=== PATIENT | male | born 1965 | race Caucasian/White ===

== ENCOUNTER 2019-03-18 10:42 | Emergency (ER) | payer BC ==
[~2019-03-18] VITALS: Wt 67.0 kg
[2019-03-18] MEDS ORDERED: ASPIRIN 325 MG TAB PO STA (11:57)
--- NOTE | 2019-03-18 12:31 | ERD ---
ER Documentation Chief Complaint Chief Complaint CHEST PAIN AND CHEST PRESSURE FOR THE PAST FEW DAYS. NO SOB NOTED HPI This is a 54-year-old male with a past medical history of hypertension. The patient indicates for the past 3 days he has been having intermittent chest pain. He states it is a squeezing-like sensation. He also indicates that he has had intermittent stabbing pain in the chest. He has no shortness of breath at rest or exertion. The pain does not radiate to his neck arm back or jaw. He does not smoke tobacco and has no family history of coronary artery disease. He denies any hemoptysis hematemesis or melanotic stools. ROS All systems reviewed and are negative except as per history of present illness. Medications Home Meds Active Scripts Ibuprofen* (Motrin*) 800 Mg Tab, 800 MG PO Q6H PRN for PAIN AND OR ELEVATED TEMP, #30 TAB Prov:ЕЛЕНА MARTINS MD 03/18/19 Reported Medications Amlodipine Besylate* (Amlodipine Besylate*) 10 Mg Tablet, 10 MG PO DAILY, #30 TAB 03/18/19 Benazepril Hcl* (Benazepril Hcl*) 40 Mg Tablet, 40 MG PO DAILY, #30 TAB 03/18/19 Hydrochlorothiazide* (Hydrochlorothiazide*) 25 Mg Tab, 25 MG PO DAILY, #30 TAB 03/18/19 Allergies Allergies: Coded Allergies: No Known Allergy (Unverified , 03/18/19) PMhx/Soc History of Surgery: Yes (Cholecystectomy) Anesthesia Reaction: No Hx Neurological Disorder: No Hx Respiratory Disorders: No Hx Cardiac Disorders: No Hx Psychiatric Problems: No Hx Miscellaneous Medical Probl: Yes (HTN) Hx Alcohol Use: No Hx Substance Use: No Hx Tobacco Use: No Smoking Status: Never smoker Physical Exam Vitals Vital Signs Date Temp Pulse Resp B/P (MAP) Pulse Ox O2 O2 Flow FiO2 Time Delivery Rate 03/18/19 59 18 129/94 98 Room Air 13:08 (106) 03/18/19 98.6 64 18 157/98 98 10:46 (117) Physical Exam Constitutional:Well-developed. Well-nourished. HEENT:Normocephalic. Atraumatic.Pupils were equal round reactive to light. Moist mucous membranes.No tonsillar exudates. Neck: No nuchal rigidity. No lymphadenopathy. No posterior cervical spine tenderness or step-offs. Respiratory: Not using accessory muscles of respiration.Lungs were clear to auscultation bilaterally. No rhonchi. No rales. No wheezing. Cardiovascular: Regular rate regular rhythm.No murmurs. No rubs were appreciated.S1, S2 normal. Distal pulses are palpable 2+ bilaterally. Reproducible midsternal left substernal chest wall tenderness with no crepitus no ecchymosis no flail chest GI: Abdomen was soft. Nontender. Non Distended. No pulsatile abdominal masses or bruits. No rebound. No guarding. Bowel sounds were present and normal. Muscle skeletal: Full range of motion of both the upper and lower extremities bilaterally.Normal muscle tone.No assymetrical calf tenderness or swelling. Skin: No petechia, no purpura. No lesions on the palms or the soles of the feet. No maculopapular rash. NEURO: Patient was alert, awake, orientated x3.No facial droop. Gait observed and normal with no ataxia.Speech had regular rate and rhythm. No focal neurological deficits. Result Diagram: 03/18/19 1231 03/18/19 1231 Results 24 hrs Laboratory Tests Test 03/18/19 12:31 White Blood Count 8.0 10^3/ul Red Blood Count 6.20 10^6/ul Hemoglobin 18.8 g/dl Hematocrit 54.5 % Mean Corpuscular Volume 87.9 fl Mean Corpuscular Hemoglobin 30.3 pg Mean Corpuscular Hemoglobin Concent 34.5 g/dl Red Cell Distribution Width 13.7 % Platelet Count 310 10^3/UL Mean Platelet Volume 9.9 fl Immature Granulocytes % 0.500 % Neutrophils % 73.1 % Lymphocytes % 17.2 % Monocytes % 7.0 % Eosinophils % 1.1 % Basophils % 1.1 % Nucleated Red Blood Cells % 0.0 /100WBC Immature Granulocytes # 0.040 10^3/ul Neutrophils # 5.9 10^3/ul Lymphocytes # 1.4 10^3/ul Monocytes # 0.6 10^3/ul Eosinophils # 0.1 10^3/ul Basophils # 0.1 10^3/ul Nucleated Red Blood Cells # 0.0 10^3/ul Prothrombin Time 12.4 Sec Prothrombin Time Ratio 1.0 INR International Normalized Ratio 0.91 Activated Partial Thromboplast Time 25.8 Sec Urine Color YELLOW Urine Clarity CLEAR Urine pH 5.0 Urine Specific [place] 1.019 Urine Ketones NEGATIVE mg/dL Urine Nitrite NEGATIVE mg/dL Urine Bilirubin NEGATIVE mg/dL Urine Urobilinogen NEGATIVE mg/dL Urine Leukocyte Esterase NEGATIVE Dhara/ul Urine Microscopic RBC 1 /HPF Urine Microscopic WBC 1 /HPF Urine Hemoglobin 1+ mg/dL Urine Glucose NEGATIVE mg/dL Urine Total Protein 2+ mg/dl Sodium Level 141 mmol/L Potassium Level 3.7 mmol/L Chloride Level 102 mmol/L Carbon Dioxide Level 26 mmol/L Anion Gap 13 Blood Urea Nitrogen 27 mg/dl Creatinine 1.24 mg/dl Est Glomerular Filtrat Rate mL/min > 60 mL/min Glucose Level 101 mg/dl Calcium Level 10.0 mg/dl Total Bilirubin 0.8 mg/dl Direct Bilirubin 0.00 mg/dl Indirect Bilirubin 0.8 mg/dl Aspartate Amino Transf (AST/SGOT) 34 IU/L Alanine Aminotransferase (ALT/SGPT) 27 IU/L Alkaline Phosphatase 90 IU/L Creatine Kinase 200 IU/L Creatine Kinase Index 0.8 Creatinine Kinase MB (Mass) 1.66 ng/ml Troponin I < 0.012 ng/ml B-Type Natriuretic Peptide 28 PG/ML Total Protein 7.9 g/dl Albumin 4.4 g/dl Globulin 3.50 g/dl Albumin/Globulin Ratio 1.25 Current Medications Medications Dose Sig/Jhonatan Start Time Status Last (Trade) Ordered Route PRN Stop Time Admin Dose Reason Admin Aspirin 325 mg ONCE STAT 03/18/19 DC 03/18/19 (Aspirin) PO 11:57 12:26 03/18/19 12:00 Ketorolac 30 mg ONCE STAT 03/18/19 DC 03/18/19 Tromethamine IV 13:45 14:04 (Toradol) 03/18/19 13:49 Procedures/MDM The patient presented to the emergency department complaining of chest pain. My clinical evaluation and workup was to distinguish minor causes of chest pain from acute life threatening cardiopulmonary causes such as myocardial infarction, pulmonary embolism, aortic dissection, esophageal rupture, cardiac tamponade, The patient was placed on a monitor technician, continuous pulse oximetry and IV access established by nursing staff. 12 Lead EKG tracing ordered and reviewed by myself showed: Normal sinus rhythm of 73 bpm and no arrhythmia. NM interval normal. QRS duration normal. No ST segment elevation No ST segment depression. No changes consistent with acute ischemia. The patient no elevation of his cardiac enzyme. The patient has had this intermittent pain for the past 3 days. He has no cardiac risk factors. He does not smoke tobacco has no family history of coronary artery disease in his first- degree relatives. I did feel that the patient be safely discharged home but I felt the patient would benefit from an outpatient cardiology appointment. He will follow-up with his primary care physician. The patient was discharged home in fair condition. They were instructed to return to the emergency department at any time if there was any worsening of their condition. The patient stated they would follow up with their PCP in the next 24-48 hours to initiate a suitable medication regimen under the care of their PCP as well as to allow their PCP to monitor any drug reactions. The patient was discharged home with prescriptions after they gave informed consent to the new medication. They were also fully informed by myself on the adverse effects and adverse drug interactions in order to provide adequate safeguards to prevent possible adverse reactions to medications. Departure Diagnosis: Primary Impression: Chest pain Chest pain type: unspecified Qualified Codes: R07.9 - Chest pain, unspecified Condition: Fair ЕЛЕНА MARTINS MD Mar 18, 2019 12:31
[2019-03-18] MEDS ORDERED: HYDR25TA6 PO (12:39)
[2019-03-18] MEDS ORDERED: BENA40TA56 PO (12:40)
[2019-03-18] MEDS ORDERED: AMLO-147 PO (12:40)
[2019-03-18] MEDS ORDERED: KETOROLAC 30 MG INJ IV STA (13:45)
[2019-03-18] MEDS ORDERED: IBUP800T48 PO (13:53)
[2019-03-18 14:31] VITALS: BP 131/93; PULSE 54; RESP 16
== END 2019-03-18 14:33 | disposition home or self-care (01) ==
LOC: E/R 10:42
DX: I10 Essential (primary) hypertension (principal)
CPT/HCPCS: 71045; 80053; 81001; 82550; 82553; 83880; 84484; 85025; 85610; 85730; 93005; 96374; 99285; J1885